=== PATIENT | male | born 1990 | race Caucasian/White ===

== ENCOUNTER 2019-09-27 19:50 | Emergency (ER) | payer OTHER ==
[~2019-09-27] VITALS: Ht 163 cm; Wt 74.0 kg
[2019-09-27] MEDS ORDERED: VIBRAMYCIN 100100 MG PO (20:57)
[2019-09-27] MEDS ORDERED: HYDROCODONE-ACE15 ML PO (20:57)
[2019-09-27 21:36] VITALS: BP 138/74
== END 2019-09-27 22:20 | disposition home or self-care (01) ==
LOC: M.ERS 19:50
DX: T63.301A Toxic effect of unspecified spider venom, accidental (unintentional), initial encounter (principal); R22.1 Localized swelling, mass and lump, neck; R07.89 Other chest pain; Y92.89 Other specified places as the place of occurrence of the external cause